=== PATIENT | female | born 1980 | race African-American/Black ===

== ENCOUNTER 2017-12-12 16:17 | Emergency (ER) | payer MEDICARE ==
[~2017-12-12] VITALS: Ht 165.1 cm; Wt 77.0 kg
[2017-12-12] MEDS ORDERED: ALBUTEROL (0.083%) 2.5MG/3ML NEB HHN STA (16:23)
[2017-12-12] MEDS ORDERED: PREDNISONE 20MG TABLET PO STA (16:23)
[2017-12-12] MEDS ORDERED: IPRATROPIUM BROMIDE (0.02%) 0.5MG/2.5ML NEB HHN STA (16:23)
[2017-12-12] MEDS ORDERED: SODIUM CHLORIDE 0.9% 1,000 ML IV ONE ×2 (18:19)
[2017-12-12 18:40] LABS: BASOPHILS % 0.5 % (0.0-2.0); EOSINOPHILS % 1.9 % (0.0-5.0); HEMATOCRIT. 42.7 % (36.0-48.0); HEMOGLOBIN. 13.9 g/dL (12.0-16.0); LYMPHOCYTES % 27.2 % (20.0-50.0); MEAN CORPUSCULAR HEMOGLOBIN 28.4 pg (28.0-32.0); MEAN CORPUSCULAR VOLUME 87.2 fL (81.0-99.0); MEAN PLATELET VOLUME 8.1 fl (7.4-10.4); MONOCYTES % 4.7 % (2.0-8.0); NEUTROPHILS % 65.7 % (40.0-76.0); PLATELET 301 x1000/uL (130-400)
[2017-12-12 18:43] LABS: CHLORIDE 108 mEq/L (98-107)
[2017-12-12 18:48] LABS: D-DIMER 0.3 mg/L FEU (<0.50); PROTHROMBIN TIME 10.8 sec (9.4-11.6)
[2017-12-12 18:51] LABS: CREATINE KINASE 144 IU/L (26-192)
[2017-12-12 18:53] LABS: CREATINE KINASE MB FRACTION 1.2 ng/mL (0.5-3.6)
[2017-12-12 20:30] VITALS: BP 131/81
== END 2017-12-12 22:21 | disposition home or self-care (01) ==
LOC: ER 17:16
DX: J45.901 Unspecified asthma with (acute) exacerbation (principal); Z88.0 Allergy status to penicillin
CPT/HCPCS: 36415; 71045; 80048; 81025; 82550; 82553; 83880; 84484; 85025; 85379; 85610; 85730; 93005; 93970; 94640; 96360; 99285; J7030; J7512; J7611